=== PATIENT | female | born 1990 | race Two or more races ===

== ENCOUNTER 2023-02-25 16:45 | Emergency (ER) | payer OTHER ==
[~2023-02-25] VITALS: Ht 162.6 cm; Wt 79.8 kg
--- NOTE | 2023-02-25 17:15 | NUR ---
PT IN BED 12 BREATHING IS EVEN AND UNLABORED. C/O HISTORY OF ALCOHOL ABUSE HALF A BOTTLE OF LIQUOR A DAY. TODAY WHILE BEING BOOKED PT BECAME PALE AND HAD A SYNCOPE EPISODE.
--- NOTE | 2023-02-25 17:16 | NUR ---
[employer] AT BED SIDE.
[2023-02-25 17:43] VITALS: BP 132/95
== END 2023-02-25 17:44 | disposition admitted as inpatient to this hospital (09) ==
LOC: ER 17:00
DX: Z02.9 Encounter for administrative examinations, unspecified (principal)

== ENCOUNTER 2023-02-25 18:44 | Emergency (ER) | payer OTHER ==
[~2023-02-25] VITALS: Ht 162.6 cm; Wt 79.8 kg
--- NOTE | 2023-02-25 19:11 | NUR ---
EKG COMPLETED AT BEDSIDE
--- NOTE | 2023-02-25 19:20 | NUR ---
20GA TO LAC ESTABLISHED
--- NOTE | 2023-02-25 19:21 | NUR ---
BLOOD WORK COLLECTED AND SENT TO LAB
[2023-02-25] MEDS ORDERED: ONDANSETRON HCL/PF 4 MG/2 ML VIAL ONE (19:24)
[2023-02-25] MEDS ORDERED: IV NS 0.9% 1,000 ML BAG IV ONE (19:30)
[2023-02-25] MEDS ORDERED: ONDANSETRON HCL/PF 4 MG/2 ML VIAL IVP ONE (19:30)
--- NOTE | 2023-02-25 19:32 | NUR ---
PT TO RESTROOM, ACCOMPANIED BY Diana. URINE CUP PROVIDED TO PATIENT.
--- NOTE | 2023-02-25 19:36 | NUR ---
URINE COLLECTED AND SENT TO LAB
[2023-02-25 20:04] LABS: BASOPHILS % (AUTO) 0.6 % (0.0-2.0); EOSINOPHILS % (AUTO) 0.2 % (0.0-6.0); HEMATOCRIT 40 % (33-45); LYMPHOCYTES # (AUTO) 0.4 K/uL (0.8-4.8); LYMPHOCYTES % (AUTO) 8.1 % (20.0-44.0); MEAN CORPUSCULAR HGB CONC 32 g/dl (31.0-36.0); MEAN CORPUSCULAR VOLUME 85 fL (82-100); MONOCYTES # (AUTO) 0.3 K/uL (0.1-1.30); MONOCYTES % (AUTO) 6.3 % (2.0-12.0); NEUTROPHILS # (AUTO) 4.6 K/uL (1.8-8.9); NEUTROPHILS % (AUTO) 84.8 % (43.0-81.0); PLATELET COUNT (AUTO) 221 K/uL (150-450); RED BLOOD CELL COUNT(AUTO) 4.76 MIL/uL (4.0-5.2); WHITE BLOOD COUNT (AUTO) 5.5 K/uL (4.3-11.0)
[2023-02-25 20:13] LABS: CALCIUM, SERUM 9.4 mg/dL (8.5-10.1); CREATININE 0.7 mg/dL (0.6-1.3); POTASSIUM 4.1 mmol/L (3.5-5.1)
[2023-02-25 20:14] LABS: BILIRUBIN,URINE 1+ (NEGATIVE); COLOR,URINE YELLOW (YELLOW); LEUKOCYTE ESTERASE ,URINE NEGATIVE (NEGATIVE); NITRITE, URINE NEGATIVE (NEGATIVE); PROTEIN,URINE 3+ mg/dl (NEGATIVE); UGLUCOSE NEGATIVE (NEGATIVE)
[2023-02-25 20:20] LABS: BACTERIA,URINE 3+ /HPF (None Seen); MUCUS,URINE Few /LPF (None Seen); SQUAMOUS EPITHELIAL CELL,UR 21-50 /HPF (None Seen)
--- NOTE | 2023-02-25 20:51 | NUR ---
Patient discharged to home in stable condition. Written and verbal after care instructions given. Patient verbalizes understanding of instruction. IV removed. Catheter intact and site benign. Pressure and 4x4 applied to site. No bleeding noted.
[2023-02-25 20:52] VITALS: BP 132/89
== END 2023-02-25 21:27 ==
LOC: ER 19:06
DX: Z02.9 Encounter for administrative examinations, unspecified (principal)
CPT/HCPCS: 99284; 96374; 96361; 93005; 85025; 80048; 87086; 84703; 81001; 36415; J2405; J7030